=== PATIENT | male | born 1965 | race Caucasian/White ===

== ENCOUNTER 2020-05-24 17:01 | Observation (INO) | payer OTHER ==
[~2020-05-24] VITALS: Ht 175.3 cm; Wt 113.9 kg
[~2020-05-24 17:01] MED LIST: BENICAR20 MG PO; CATAPRES 0.1MG0.1 MG PO; CLOPIDOGREL75 MG PO; CYMBALTA60 MG PO; DITROPAN XL5 MG PO; ELIQUIS 5 MG TAB5 MG PO; EVOLOCUMAB 420 MG/3.5 ML IM; HYDROCHLOROTHIA25 MG PO; HYDROXYZINE HCL25 MG PO; KLONOPIN0.5 MG PO; LIPITOR40 MG PO; NICOTINE PATCH1 EAC1 TD; RANOLAZINE ER1000 MG PO; SOTALOL80 MG PO; VALSARTAN80 MG PO
[2020-05-24 18:23] LABS: HEMOGLOBIN 13.9 gm/dl (14.0-17.5); RED BLOOD COUNT 4.82 M/UL (4.20-5.50)
[2020-05-24 18:51] LABS: BUN/CREATININE RATIO 9 (0-10)
[2020-05-25] MEDS ORDERED: ISORDIL TAB 3030 MG PO (01:28)
[2020-05-26 09:38] LABS: HEMOGLOBIN 12.8 gm/dl (14.0-17.5); RED BLOOD COUNT 4.51 M/UL (4.20-5.50)
[2020-05-26 09:40] LABS: WHITE BLOOD COUNT 6.8 K/UL (4.5-11.0)
[2020-05-26 10:05] LABS: BUN/CREATININE RATIO 17 (0-10)
[2020-05-26] MEDS ORDERED: BETAPACE 80MG T80 MG PO (10:58)
== END 2020-05-26 14:20 | disposition home or self-care (01) ==
LOC: ER1 17:01 → CDU 22:23 → MED SURG 4 22:23
PROVIDERS: Family Medicine; Physician Assistant; ADMIT Internal Medicine
DX: R07.9 Chest pain, unspecified (principal); R00.2 Palpitations; I11.9 Hypertensive heart disease without heart failure; I25.10 Atherosclerotic heart disease of native coronary artery without angina pectoris; I48.0 Paroxysmal atrial fibrillation; E78.5 Hyperlipidemia, unspecified; K21.9 Gastro-esophageal reflux disease without esophagitis; F41.9 Anxiety disorder, unspecified; F32.9 Major depressive disorder, single episode, unspecified; F17.200 Nicotine dependence, unspecified, uncomplicated; E66.9 Obesity, unspecified; Z68.37 Body mass index [BMI] 37.0-37.9, adult; Z20.822 Contact with and (suspected) exposure to COVID-19; Z95.5 Presence of coronary angioplasty implant and graft; Z88.5 Allergy status to narcotic agent; Z79.01 Long term (current) use of anticoagulants; Z79.02 Long term (current) use of antithrombotics/antiplatelets; Z79.899 Other long term (current) drug therapy; X58.XXXA Exposure to other specified factors, initial encounter
CPT/HCPCS: 0240U; 36415; 70450; 71045; 73080; 80053; 82550; 82553; 82962; 83036; 83874; 83880; 84439; 84443; 84484; 84550; 85025; 86140; 93005; 96374; 96375; 96376; 99285; G0378; J2270; J2405; J3475; J3480

== ENCOUNTER 2020-06-26 21:42 | Emergency (ER) | payer OTHER ==
[~2020-06-26 21:42] MED LIST changes: +BETAPACE 80MG T80 MG PO; +ISORDIL TAB 3030 MG PO
[2020-06-27 00:43] LABS: HEMOGLOBIN 14.2 gm/dl (14.0-17.5); RED BLOOD COUNT 4.89 M/UL (4.20-5.50); WHITE BLOOD COUNT 9.5 K/UL (4.5-11.0)
[2020-06-27 00:59] LABS: BUN/CREATININE RATIO 17 (0-10)
== END 2020-06-27 02:26 | disposition home or self-care (01) ==
LOC: ER1 21:42
PROVIDERS: Physician Assistant
DX: R51.9 Headache, unspecified (principal); E87.6 Hypokalemia; I10 Essential (primary) hypertension; I48.91 Unspecified atrial fibrillation; Z88.6 Allergy status to analgesic agent; Z20.822 Contact with and (suspected) exposure to COVID-19; Z79.01 Long term (current) use of anticoagulants; Z79.02 Long term (current) use of antithrombotics/antiplatelets; W19.XXXA Unspecified fall, initial encounter
CPT/HCPCS: 70450; 71045; 80053; 81001; 82550; 82553; 83874; 84484; 85025; 93005; 99284; U0002